=== PATIENT | female | born 1975 | race Caucasian/White ===

== ENCOUNTER → 2018-08-24 | Outpatient (CLI) | payer OTHER ==
--- NOTE | 2018-08-25 09:02 | RADIOLOGY IMAGING REPORT ---
FACILITY: [facility] PATIENT NAME: ANGELICA BESS : [id number] MR: [id number] V: [id number] EXAM DATE: [id number] ORDERING PHYSICIAN: RADHA RUEDA TECHNOLOGIST: Aminata Pa PROCEDURE:BILATERAL DIGITAL SCREENING MAMMOGRAM WITH CAD ASSISTED INTERPRETATION & 3D TOMOSYNTHESIS COMPARISON:None. INDICATIONS:SCREENING FINDINGS: In the upper outer quadrant of the Right breast there is a circumscribed slightly lobular nodular density with a notched lucency that likely represents an intramammary lymph node. A small finding is present in the upper outer quadrant of the Left breast in the middle 1/3. In the upper portion of the Left breast on the Left MLO view just anterior to the chest wall there is an incompletely imaged circumscribed nodular density. An XCC view of the Left breast is recommended for further evaluation. DIAGNOSTIC CATEGORY 0--INCOMPLETE: NEED ADDITIONAL IMAGING EVALUATION. RECOMMENDATIONS: ADDITIONAL MAMMOGRAPHIC VIEWS REQUIRED: LEFT BREAST. IMPRESSION: BIRADS 0: Incomplete. Additional views of the Left breast are recommended as described. Dictated by: Jeimy Salcido M.D. on 08/24/2018 at 9:04 Transcribed by: WALLACE on 08/24/2018 at 9:25 Approved by: Jeimy Salcido M.D. on 08/25/2018 at 9:01 [facility]
== END ==
LOC: MAMO 07:55
PROVIDERS: ATTEND Family Medicine
DX: Z12.31 Encounter for screening mammogram for malignant neoplasm of breast (principal); R92.8 Other abnormal and inconclusive findings on diagnostic imaging of breast; N63.11 Unspecified lump in the right breast, upper outer quadrant; N63.21 Unspecified lump in the left breast, upper outer quadrant
CPT/HCPCS: 77063; 77067

== ENCOUNTER → 2018-09-06 | Outpatient (CLI) | payer OTHER ==
--- NOTE | 2018-09-06 10:24 | RADIOLOGY IMAGING REPORT ---
FACILITY: [facility] PATIENT NAME: Zora Brown : 1975 MR: [id number] V: [id number] EXAM DATE: ORDERING PHYSICIAN: RADHA RUEDA TECHNOLOGIST: Location: [facility] Patient: Zora Brown : 1975 Visit/Account:[id number] Date of Sevice: 09/06/2018 Exam type: CHEST PA LAT History: Bronchitis, cough, shortness of breath Comparison: None. Findings: There is S-shaped scoliosis of the thoracic spine. Suggestion of subtle haziness over the right hear t border on the PA view although not well localized on the lateral view. This could be related to pa tient's scoliosis although subtle area of airspace consolidation not excluded There is no evidence of pleural effusions or pulmonary edema. No evidence of a pneumothorax or pneumomediastinum. The card iac silhouette is normal in size. There is a mild exaggeration of normal thoracic kyphosis likely re lated to the patient's scoliosis. IMPRESSION: 1. There suggestion of subtle haziness over the right heart border on the PA view although not well localized on the lateral view. This could be related to patient's scoliosis although subtle areas ai rspace consolidation not excluded Report Dictated By: Jeimy Salcido MD at 09/06/2018 10:16 AM Report E-Signed By: Jeimy Salcido MD at 09/06/2018 10:20 AM WSN:ILANA
== END ==
LOC: RAD 09:25
PROVIDERS: ATTEND Family Medicine
DX: R91.8 Other nonspecific abnormal finding of lung field (principal)
CPT/HCPCS: 71046

== ENCOUNTER → 2018-09-14 | Outpatient (CLI) | payer OTHER ==
--- NOTE | 2018-09-14 16:59 | RADIOLOGY IMAGING REPORT ---
FACILITY: [facility] PATIENT NAME: ANGELICA BESS : [id number] MR: [id number] V: [id number] EXAM DATE: [id number] ORDERING PHYSICIAN: RADHA RUEDA TECHNOLOGIST: Aminata Pa PROCEDURE:LEFT DIGITAL DIAGNOSTIC MAMMOGRAM WITH CAD ASSISTED INTERPRETATION & 3D TOMOSYNTHESIS COMPARISON:Prior mammogram 08/24/18. INDICATIONS:FURTHER EVAL FINDINGS: The patient received Spot compression view of the Left MLO projection, Left XCC view and a mediolateral view of the Left breast. The small nodular density in the posterior 1/3 upper portion of the Left breast on the recent Left MLO view appears to represent a small lymph node. This is seen to better advantage with several other adjacent small lymph nodes with fatty hilum in the upper portion of the Left breast posterior 1/3 on the Spot compression view. DIAGNOSTIC CATEGORY 2--BENIGN FINDING. RECOMMENDATIONS: ROUTINE MAMMOGRAM AND CLINICAL EVALUATION. IMPRESSION: BIRADS 2: Benign finding. Small lymph nodes identified in the posterior 1/3 of the Left breast upper portion as described above. Dictated by: Jeimy Salcido M.D. on 09/14/2018 at 14:57 Transcribed by: WALLACE on 09/14/2018 at 15:15 Approved by: Jeimy Salcido M.D. on 09/14/2018 at 16:58 [facility]
== END ==
LOC: MAMO 00:45
PROVIDERS: ATTEND Family Medicine
DX: R92.8 Other abnormal and inconclusive findings on diagnostic imaging of breast (principal)
CPT/HCPCS: 77061; 77065